=== PATIENT | male | born 1960 | race Two or more races ===

== ENCOUNTER 2025-03-15 10:18 | Outpatient (CLI) | payer SELFPAY ==
[~2025-03-15] VITALS: Ht 180.3 cm; Wt 120.2 kg
[2025-03-15] MEDS: REGADENOSON 0.4 MG/5 ML SYRG IV ONE ×2 (12:00→12:06)
--- NOTE | 2025-03-20 09:31 | DVHSR ---
APPROVED REPORT Exam: Nuclear Stress Test BMI: 0 Stress Test Details Stress Test: Pharmacologic stress testing performed using 0.4 mg of regadenoson per 5 mL given IV ov er 10 seconds. HR Resting HR: 86 bpmMax Heart Rate (APMHR): 157.325104 bpm Max HR Achieved: 98 bpmTarget HR (85% APMHR): 133.292983 bpm % of APMHR: 62.42 Recovery HR: 89 bpm BP Resting BP: 136/73 mmHg Recovery BP: 121/76 mmHg ECG Resting ECG: Sinus Rhythm Nurse Comments Recieved pt. from [employer]. A/Ox4 on RA. Connected to civil structural engineer, VS stable. PIV flushes well. Re viewed POC. Pt. verbalized understanding of procedure including risks and side effects, agrees for st ress testing. Lexiscan stress test performed per protocol. [employer] tech administered Cardiolite. Pt. tolerated well . Pt. stable, no change on exam. VS returned to baseline. Transferred to [employer] via wheelchair w/ te ch. Stress ECG Conclusion lvgef 60% inferior wall ischemia PVCs on ecg portion abnormal study NM EXAM: Myocardial Perfusion REST/STRESS Imaging Protocol: Rest Tc-99m/Stress Tc-99m 1 day Resting Data Rest SPECT myocardial perfusion imaging was performed in supine position 60 minutes following the int ravenous injection of 10.9 mCi of Tc-99m Sestamibi. Time of rest injection: 10:30 Date: 03/15/2025 Time of rest imagin:30 Date: 03/15/2025 Administration Route: IV Administration Site: Left AC Pharmacologic Stress Pharmacologic stress test was performed by injecting Regadenoson 0.4 mg IV push followed by the intra venous injection of 31.5 mCi of Tc-99m Sestamibi. Time of stress injection: 12:01 Date: 03/15/2025 Time of stress imagin:01 Date: 03/15/2025 Administration Route: IV Administration Site: Left AC Gated Stress SPECT was performed 60 minutes after stress injection. The images were gated to evaluate regional wall motion and calculate left ventricular ejection fracti on. Stress only was performed in the Supine position. Nuclear Conclusion Nuclear Findings: positive for ischemia lvgef 60% inferior wall ischemia PVCs on ecg portion abnormal study
== END 2025-03-15 17:00 | disposition home or self-care (01) ==
LOC: XYW 10:18
PROVIDERS: ATTEND Specialist
DX: I25.9 Chronic ischemic heart disease, unspecified (principal); I49.3 Ventricular premature depolarization; I10 Essential (primary) hypertension; E11.9 Type 2 diabetes mellitus without complications; E78.5 Hyperlipidemia, unspecified
CPT/HCPCS: 78452; 93017; A9500; J2785